=== PATIENT | male | born 1995 | race Caucasian/White ===

== ENCOUNTER 2022-04-12 13:39 | Emergency (ER) | payer BC, SELFPAY ==
[2022-04-12 13:40] VITALS: BP 135/78; PULSE 86; RESP 15; TEMP 36; O2SAT 98; BMI 23.7
--- NOTE | 2022-04-12 13:42 | RAD_ITS ---
STUDY: X-RAY - LEFT ANKLE REASON FOR EXAM: Male, 26 years old. ROLLED ANKLE 2 DAYS AGO, LATERAL BRUISING AND SWELLING TO ANKLE AND FOOT TECHNIQUE: 3 view(s) of the ankle. COMPARISON: None. FINDINGS: Normal visualized distal tibia and fibula. Normal medial and lateral malleoli. Normal tibiotalar articulation and ankle mortise. Normal visualized talus and calcaneus. The visualized subtalar, talonavicular, calcaneocuboid and tarsal articulations are normal. There is no demonstrated fracture. Mild soft tissue swelling is present around the ankle. RAD/Ankle min 3 Views IMPRESSION: Mild soft tissue swelling Electronically Signed: David Botello MD at 14:17 EST ,
--- NOTE | 2022-04-12 15:08 | ED.RN ---
WHEN CALLED TO TAKE PT TO A ROOM PT WAS NO LONGER IN THE WAITING ROOM.
== END 2022-04-12 15:09 | disposition left against medical advice (07) ==
LOC: ED 15:11
DX: Z53.21 Procedure and treatment not carried out due to patient leaving prior to being seen by health care provider (principal)
CPT/HCPCS: 73610